=== PATIENT | male | born 1995 | race Caucasian/White ===

== ENCOUNTER 2019-04-17 10:12 | Outpatient (CLI) | payer BC ==
--- NOTE | 2019-04-17 10:56 | ULT ---
ABDOMINAL ULTRASOUND HISTORY: Right upper quadrant abdominal pain. FINDINGS: Liver: There are 2 echogenic foci are seen in the right hepatic lobe measuring 1.2 cm and 0.9 cm resp ectively which may represent small hepatic hemangiomas. Nonemergent CT abdomen following hepatic mass protocol is recommended. Gallbladder: There are 2 nonmobile echogenic foci seen along the gallbladder wall measuring 0.4 cm an d 0.3 cm respectively. Findings are likely related to small gallbladder polyps. No mobile gallbladder calculi are seen. There is no gallbladder wall thickening or pericholecystic fluid. Common duct: Common duct is normal in caliber measuring 0.3 cm in diameter. Pancreas: The limited visualized pancreas demonstrates a normal sonographic appearance. IVC: Limited visualized IVC has a normal sonographic appearance. Aorta: The aorta is normal in caliber. Spleen: Within normal limits. Kidneys: Kidneys demonstrate a normal sonographic appearance bilaterally with the right kidney measur ing 10 cm in length, and the left kidney measures 11.4 cm in length. IMPRESSION: 1. 2 echogenic masses right hepatic lobe most likely attributable to hemangiomas. However, follow-up CT abdomen following hepatic mass protocol is recommended for further evaluation. 2. Gallbladder polyps largest measuring 0.4 cm. No gallbladder calculus is appreciated, and the commo n duct is normal in caliber.
== END 2019-04-17 10:13 | disposition home or self-care (01) ==
LOC: BICULT 10:12
PROVIDERS: ATTEND Physician Assistant Medical
DX: R10.11 Right upper quadrant pain (principal); R16.0 Hepatomegaly, not elsewhere classified; K82.4 Cholesterolosis of gallbladder
CPT/HCPCS: 93975

== ENCOUNTER 2019-04-28 09:02 | Outpatient (CLI) | payer BC ==
--- NOTE | 2019-04-28 10:48 | CT ---
CT Abdomen W WO Con History: Liver mass Comparison: Abdomen ultrasound April 17, 2019 Findings: Lung bases are clear. No significant pericardial fluid. On the noncontrast portion examination there is no nephroureterolithiasis. Visualized thoracic and lumbar spine is unremarkable. Transverse processes are intact. On the arterial phase of contrast there is high-grade reflux of contrast throughout the hepatic veins . Evaluation for an arterial enhancing mass cannot be performed due to the contrast reflux. On the portal venous phase there is a hypodensity within hepatic segment 8 measuring 9 mm and is not seen on the 10 minute delayed phase. No other hepatic mass is appreciated. The aortic contour is nonaneurysmal. The kidneys are unremarkable. Adrenal glands are unremarkable. Spleen is unremarkable. Pancreas is unremarkable. Impression: Severely limited examination due to the arterial phase due to hepatic venous reflux of co ntrast within the hepatic veins. No abnormal solid enhancing mass is appreciated only a hypodensity in hepatic segment 8 measuring 9 mm not seen on the delayed phase of contrast may reflect a hemangiom a, given recent ultrasound findings. This likely corresponds to the echogenic focus seen on the recent ultrasound. The second larger 1.2 cm echogenic focus seen on recent ultrasound is not delineat ed on today's exam and may reflect a isoenhancing hemangioma. No suspicious mass is appreciated.
== END 2019-04-28 09:03 | disposition home or self-care (01) ==
LOC: SCSCT 09:02
PROVIDERS: ATTEND Internal Medicine Gastroenterology
DX: R16.0 Hepatomegaly, not elsewhere classified (principal)
CPT/HCPCS: 74170

== ENCOUNTER 2019-06-13 11:09 | Outpatient (CLI) | payer BC ==
--- NOTE | 2019-06-13 14:06 | MRI ---
MRI Abdomen W WO Con History: Liver mass Comparison: CT exam April 2019 Findings: No significant pleural effusion. No pericardial effusion. Within hepatic segment 8 is a 9 mm T2 hyperintense mass with slow peripheral centripetal enhancement, discontinuous in nature, the appearance of puddling. This is the only mass is appreciated within the liver. No other mass is appreciated. No concerning enhancing mass. The spleen, pancreas, adrenal glands, kidneys are unremarkable. Background marrow signal is normal. No dilated loops of large or small bowel. No retroperitoneal periaortic adenopathy. No intrahepatic or extra hepatic biliary dilatation. No cholelithiasis. Impression: 1. Only a single hepatic mass is appreciated on today's exam and hepatic segment 8 measuring 9 mm wit h imaging characteristics of a benign hemangioma. 2. Initial ultrasound demonstrated 2 similar echogenic foci of the liver which are almost definitivel y hemangiomas. It is possible that the second is not seen on today's exam due to its small size along with the possibility that it is the same exact enhancement characteristics of the background li duc. Given that it may have the same imaging characteristics as the background liver, this is not suspicious, and no follow-up is required. 3. No suspicious hepatic mass.
== END 2019-06-13 11:10 | disposition home or self-care (01) ==
LOC: SCSMRI 11:09
PROVIDERS: ATTEND Internal Medicine Gastroenterology
DX: K76.89 Other specified diseases of liver (principal)
CPT/HCPCS: 74183